=== PATIENT | male | born 1935 | race Caucasian/White ===

== ENCOUNTER 2024-02-22 10:30 | Outpatient (RCR) | payer MEDICARE, OTHER, SELFPAY ==
--- NOTE | 2024-02-16 15:39 | PT.OIE ---
Current Diagnoses Pain in unspecified knee (02/16/24) Spinal stenosis, lumbosacral region (02/16/24) Repeated falls (02/16/24) Weakness (02/16/24) Visit Care Team Role Provider Type Kamilla Butterfield MD Attending Provider Non-Staff Primary Care Provider Referring Provider Specialty: Rheumatology Address: [address] [place] [address], [place], [address] Fax: Email: Physical Therapy Initial Evaluation PT-OP-A Visit Information Start: 02/16/24 08:39 Freq: Status: Active Protocol: Document 02/16/24 09:48 MB (Rec: 02/16/24 10:07 MB [id number]) Out-Patient Physical Therapy Visit Information Visit Information Visit Type Initial Evaluation Visit Start Time 09:48 Visit Stop Time 10:18 Visit Number 1 Number of 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 He will have to see a neurosurgeon at [facility]. 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 He has been very active. He did a lot of hard garden work. Pt reports left leg pain and weakness and that his left leg gives out on him. He has had some falls. Pt has had 6 falls so far in 2023. Pt has not been using a cane or walking sticks. PMH includes arthritis, pacemaker, left hip replacement (pt has trouble recalling which hip), left sided DYKES that comes up the left side, hearing aides Pt denies numbness and tingling but he describes restless legs at night. He sleeps on his left side without pillow support between his legs. Prior Treatments and Tests 01/26/24: lumbar MRI: multi- level degenerative changes L2- 3, increased disc bulge and marked thickening of ligamentum flavum, central canal stenosis and sever on the left, some similar findings L3-4 Treatment Goals Patient/Caregiver Goals Decreased pain and get more mobile PT-OP-C Subjective Start: 02/16/24 08:39 Freq: Status: Active Protocol: Document 02/16/24 09:48 MB (Rec: 02/16/24 15:37 MB [id number]) OP-PT Subjective Patient Comments Patient Comments See history of current condition Patient Questionnaires Lower Extremity Functional Scale LEFS Score 36/80 PT-OP-G Mobility & Gait Start: 02/16/24 08:39 Freq: Status: Active Protocol: Document 02/16/24 09:48 MB (Rec: 02/16/24 15:37 MB [id number]) OP Gait Assessment Comments Gait Comments Gait without AD is slow and pt presents with decreased arm swing, more on the right, and step-to gait pattern with slight left leg lag PT-OP-J Posture/Palpation/Skin Start: 02/16/24 08:39 Freq: Status: Active Protocol: Document 02/16/24 09:48 MB (Rec: 02/16/24 15:37 MB [id number]) Posture Evaluation Comments Posture Comments Standing posture: pt with spinal changes and spinal protrusion/reversal of curvature posteriorly in various portions of thoracic spine, severe forward head with left tragus 2.5 in front of left AC joint, right iliac crest is higher than the left , B shoulders forward and rounded and left his higher than right. Standing balance is too poor to check spinal movement as far as flexion, extension and SB in standing. He has spinal tension and torsional curvature of his spine. Pt cannot follow commands to allow PT to passively raise either leg for SLR in supine. PT-OP-M Strength Start: 02/16/24 08:39 Freq: Status: Active Protocol: Document 02/16/24 09:48 MB (Rec: 02/16/24 15:37 MB [id number]) Hip Strength Hip Manual Muscle Testing Left Comments Pt moans/groans and c/o left hip and leg pain with active flexion in hook lying and so MMT and full ROM deferred d/t low tolerance Right Flexion (L2) 4 Good Extension (S1) 4 Good Abduction 4 Good Comments MMT in hook lying Knee Strength Knee Manual Muscle Testing Left Comments Attempted knee MMT twice and pt moans/groans in pain with lifting left hip in hook lying and he does not tolerate MMT Right Flexion (S2) 5 Normal Extension (L3) 5 Normal Ankle/Foot Strength Ankle and Foot Manual Muscle Testing Left Dorsiflexion (L4) 5 Normal Comments Tested in hook lying Right Dorsiflexion (L4) 5 Normal Comments Tested in hook lying Toe Strength Toe Manual Muscle Testing Left Great Toe Extension 5 Normal Comments Tested in hook lying Right Great Toe Extension 5 Normal Comments Tested in hook lying PT-OP-Q Treatments Start: 02/16/24 08:39 Freq: Status: Active Protocol: Document 02/16/24 09:48 MB (Rec: 02/16/24 15:37 MB [id number]) Gait Training Gait Activity Cane and hiking sticks Comments AD training d/t imbalance and reports of falls and pt has trouble moving hiking sticks each step and tends to move with same leg, one hiking stick appears to long functionally for step-length and SPC seems to be the best option. Pt tends to take too long of steps and so ongoing training to move AD with opposite foot and to take standard step length. Will need more practice. Self-Care/Home Management Treatment Education Other Education Benefits of AD to help protect spine, unweight and support left leg to help pain and to decrease fall risk. Pt requires a lot of encouragement and education about this as he states he has been trying to avoid AD use. Ed pt to make a list of his priorities/top goals at 89 y/o and he states he wants to go to [place] again and encouraged pt that safe gait can help get him where he wants to go. Ed in risk of falls and injury , log rolling technique and proper sleeping position with pillow support between legs PT-OP-T Assessment and Plan Start: 02/16/24 08:39 Freq: Status: Active Protocol: Document 02/16/24 09:48 MB (Rec: 02/16/24 15:37 MB [id number]) Physical Therapy Assessment Rehab Potential Rehabilitation Potential Fair Evaluation Complexity Number of Personal Factors/Comorbidities 1-2 Number of Body Systems Impaired 1-2 Clinical Presentation at Evaluation Evolving Impairments Impairments Activity Tolerance,Balance, Functional Activities, Functional Mobility,Gait,Pain, Posture,ROM,Soft Tissue Mobility,Strength,Transfers Other Concerns Fall Risk Yes Goals 3 Impairment Lack of HEP Senior Living Goal (LTG) Pt will perform progressive HEP with I including pelvic realignment, flexibility, breathing, core and LE strengthening and balance exercises to improve pain, strength and balance. LTG Duration 8 weeks 2 Impairment Evidence of imbalance Senior Living Goal (LTG) Pt will perform WNLs on Tinetti with LRAD to decrease fall risk. LTG Duration 8 weeks 1 Impairment Multiple falls in 2023 Senior Living Goal (LTG) Pt will deny falls for at least 6 weeks to reduce risk of injury. LTG Duration 8 weeks Assessment Summary Assessment Pt is an 89 y/o male presenting with significant spinal changes on postural examination. His gait without AD is poor and he has decreased arm swing and left leg lag with gait. He has had 6 falls so far in 2023 and does not have an AD and has been hesitant to use one. Extensive education on the benefits of better gait pattern to reduce left leg pain and to improve balance, gait stamina and to decrease fall risk. Pt presents with LLE pain with AROM in hook lying and he cannot tolerate full ROM and MMT in hook lying LLE as a result. He is functional weak with gait in LLE. Pt will benefit from PT to improve gait, balance, strength and flexibility. Barriers include insight and willingness to use AD, anatomical changes per functional assessment and MRI. Physical Therapy Plan Frequency and Duration Frequency of Treatment 2x/Week Duration of treatment (weeks) 8 Plan of Care Start Date 02/16/24 Plan of Care End Date 04/17/24 Therapeutic Interventions Therapeutic Interventions Balance Training,Canalithic Repositioning,Gait Training, Home Exercise Program,Joint Mobilizations,Manual Therapy, Neuromuscular Re-education, Patient/Caregiver Education, Self-Care/Home Management,Soft Tissue Mobilization,Taping, Therapeutic Activities, Therapeutic Exercises Modalities Cold Pack/Ice Massage,Electric Stimulation,Hot Packs, Ultrasound Next Visit Focus/Plan Next Note Type Treatment Note Next Visit Plan Review LRAD, initiate pelvic realignment exercises if pt can tolerate
--- NOTE | 2024-02-16 15:39 | PT.OPPOC ---
Physical, Occupational & Speech Therapy At [facility] Current Diagnoses Pain in unspecified knee (02/16/24) Spinal stenosis, lumbosacral region (02/16/24) Repeated falls (02/16/24) Weakness (02/16/24) Visit Care Team Role Provider Type Kamilla Butterfield MD Attending Provider Non-Staff Primary Care Provider Referring Provider Specialty: Rheumatology Address: [address] [place] [address], [place], [place], [facility] Fax: Email: Plan Of Care PT-OP-T Assessment and Plan Start: 02/16/24 08:39 Freq: Status: Active Protocol: Document 02/16/24 09:48 MB (Rec: 02/16/24 15:37 MB [id number]) Physical Therapy Assessment Rehab Potential Rehabilitation Potential Fair Evaluation Complexity Number of Personal Factors/Comorbidities 1-2 Number of Body Systems Impaired 1-2 Clinical Presentation at Evaluation Evolving Impairments Impairments Activity Tolerance,Balance, Functional Activities, Functional Mobility,Gait,Pain, Posture,ROM,Soft Tissue Mobility,Strength,Transfers Other Concerns Fall Risk Yes Goals 3 Impairment Lack of HEP Visitor Services Representative Goal (LTG) Pt will perform progressive HEP with I including pelvic realignment, flexibility, breathing, core and LE strengthening and balance exercises to improve pain, strength and balance. LTG Duration 8 weeks 2 Impairment Evidence of imbalance Visitor Services Representative Goal (LTG) Pt will perform WNLs on Tinetti with LRAD to decrease fall risk. LTG Duration 8 weeks 1 Impairment Multiple falls in 2023 Visitor Services Representative Goal (LTG) Pt will deny falls for at least 6 weeks to reduce risk of injury. LTG Duration 8 weeks Assessment Summary Assessment Pt is an 89 y/o male presenting with significant spinal changes on postural examination. His gait without AD is poor and he has decreased arm swing and left leg lag with gait. He has had 6 falls so far in 2023 and does not have an AD and has been hesitant to use one. Extensive education on the benefits of better gait pattern to reduce left leg pain and to improve balance, gait stamina and to decrease fall risk. Pt presents with LLE pain with AROM in hook lying and he cannot tolerate full ROM and MMT in hook lying LLE as a result. He is functional weak with gait in LLE. Pt will benefit from PT to improve gait, balance, strength and flexibility. Barriers include insight and willingness to use AD, anatomical changes per functional assessment and MRI. Physical Therapy Plan Frequency and Duration Frequency of Treatment 2x/Week Duration of treatment (weeks) 8 Plan of Care Start Date 02/16/24 Plan of Care End Date 04/17/24 Therapeutic Interventions Therapeutic Interventions Balance Training,Canalithic Repositioning,Gait Training, Home Exercise Program,Joint Mobilizations,Manual Therapy, Neuromuscular Re-education, Patient/Caregiver Education, Self-Care/Home Management,Soft Tissue Mobilization,Taping, Therapeutic Activities, Therapeutic Exercises Modalities Cold Pack/Ice Massage,Electric Stimulation,Hot Packs, Ultrasound Next Visit Focus/Plan Next Note Type Treatment Note Next Visit Plan Review LRAD, initiate pelvic realignment exercises if pt can tolerate Plan of Care Dates Plan of Care Start Date 02/16/24 Plan of Care End Date 04/17/24 Electronically Signed by: Lourdes Goldman, PT 02/16/24 8915 If you are in agreement with this Plan of Care, please return a signed and dated copy. I have reviewed this Plan of Care and certify that the skilled therapy services above are required to meet the patient?s needs. Physician Signature Date Printed Name and Credentials Clinical Instructor Signature Printed Name and Credentials
--- NOTE | 2024-02-22 11:15 | PT.OTN ---
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 He will have to see a neurosurgeon at [facility]. 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 He has been very active. He did a lot of hard garden work. Pt reports left leg pain and weakness and that his left leg gives out on him. He has had some falls. Pt has had 6 falls so far in 2023. Pt has not been using a cane or walking sticks. PMH includes arthritis, pacemaker, left hip replacement (pt has trouble recalling which hip), left sided DYKES that comes up the left side, hearing aides Pt denies numbness and tingling but he describes restless legs at night. He sleeps on his left side without pillow support between his legs. Prior Treatments and Tests 01/26/24: lumbar MRI: multi- level degenerative changes L2- 3, increased disc bulge and marked thickening of ligamentum flavum, central canal stenosis and sever on the left, some similar findings L3-4 Treatment Goals Patient/Caregiver Goals Decreased pain and get more mobile PT-OP-C Subjective Start: 02/16/24 08:39 Freq: Status: Active Protocol: Document 02/22/24 10:35 MB (Rec: 02/22/24 11:15 MB [id number]) OP-PT Subjective Patient Comments Patient Comments Pt arrives with walking sticks . He had two falls in the past week. His left leg gave way when getting into bed and going up the steps. PT-OP-G Mobility & Gait Start: 02/16/24 08:39 Freq: Status: Active Protocol: Document 02/16/24 09:48 MB (Rec: 02/16/24 15:37 MB [id number]) OP Gait Assessment Comments Gait Comments Gait without AD is slow and pt presents with decreased arm swing, more on the right, and step-to gait pattern with slight left leg lag PT-OP-J Posture/Palpation/Skin Start: 02/16/24 08:39 Freq: Status: Active Protocol: Document 02/16/24 09:48 MB (Rec: 02/16/24 15:37 MB [id number]) Posture Evaluation Comments Posture Comments Standing posture: pt with spinal changes and spinal protrusion/reversal of curvature posteriorly in various portions of thoracic spine, severe forward head with left tragus 2.5 in front of left AC joint, right iliac crest is higher than the left , B shoulders forward and rounded and left his higher than right. Standing balance is too poor to check spinal movement as far as flexion, extension and SB in standing. He has spinal tension and torsional curvature of his spine. Pt cannot follow commands to allow PT to passively raise either leg for SLR in supine. PT-OP-M Strength Start: 02/16/24 08:39 Freq: Status: Active Protocol: Document 02/16/24 09:48 MB (Rec: 02/16/24 15:37 MB [id number]) Hip Strength Hip Manual Muscle Testing Left Comments Pt moans/groans and c/o left hip and leg pain with active flexion in hook lying and so MMT and full ROM deferred d/t low tolerance Right Flexion (L2) 4 Good Extension (S1) 4 Good Abduction 4 Good Comments MMT in hook lying Knee Strength Knee Manual Muscle Testing Left Comments Attempted knee MMT twice and pt moans/groans in pain with lifting left hip in hook lying and he does not tolerate MMT Right Flexion (S2) 5 Normal Extension (L3) 5 Normal Ankle/Foot Strength Ankle and Foot Manual Muscle Testing Left Dorsiflexion (L4) 5 Normal Comments Tested in hook lying Right Dorsiflexion (L4) 5 Normal Comments Tested in hook lying Toe Strength Toe Manual Muscle Testing Left Great Toe Extension 5 Normal Comments Tested in hook lying Right Great Toe Extension 5 Normal Comments Tested in hook lying PT-OP-Q Treatments Start: 02/16/24 08:39 Freq: Status: Active Protocol: Document 02/22/24 10:35 MB (Rec: 02/22/24 11:15 MB [id number]) Therapeutic Exercises Supine Exercises Pelvic realignment exercises Supine Exercise Name Dysmetria in LLE with second exercise Equipment Used Blue ball Reps/Minutes 5 rep, 3 sec hold all exercises in order Comments Feet together ball squeeze iso , knee opp ankle iso, thigh press down iso Gait Training Gait Activity Stair training Comments With left rail and cane ascend and descend and then with cane only, advance always with left leg ascend and descend with cane in right hand and pt requires cues and CGA Cane and hiking sticks Comments Pt simply cannot get the pattern of advancing stick with opposite foot with either one or two hiking sticks ( tried both hands). He does better with the SPC in right hand and cued for more normal step length Self-Care/Home Management Treatment Education Other Education Extensive and repeated education about pt's current level, needing to stop falls, benefits of AD to help with this and ongoing AD training and SPC currently looks the best for pt PT-OP-T Assessment and Plan Start: 02/16/24 08:39 Freq: Status: Active Protocol: Document 02/22/24 10:35 MB (Rec: 02/22/24 11:15 MB [id number]) Physical Therapy Assessment Rehab Potential Rehabilitation Potential Fair Evaluation Complexity Number of Personal Factors/Comorbidities 1-2 Number of Body Systems Impaired 1-2 Clinical Presentation at Evaluation Evolving Impairments Impairments Activity Tolerance,Balance, Functional Activities, Functional Mobility,Gait,Pain, Posture,ROM,Soft Tissue Mobility,Strength,Transfers Other Concerns Fall Risk Yes Goals 3 Impairment Lack of HEP Accelerator Operator Goal (LTG) Pt will perform progressive HEP with I including pelvic realignment, flexibility, breathing, core and LE strengthening and balance exercises to improve pain, strength and balance. LTG Duration 8 weeks 2 Impairment Evidence of imbalance Accelerator Operator Goal (LTG) Pt will perform WNLs on Tinetti with LRAD to decrease fall risk. LTG Duration 8 weeks 1 Impairment Multiple falls in 2024 Accelerator Operator Goal (LTG) Pt will deny falls for at least 6 weeks to reduce risk of injury. LTG Duration 8 weeks Assessment Summary Assessment Sometimes PT is unsure how realistic pt is about his situation and about his goals. He is reluctant to accept needing a cane despite ongoing falls. He states often that I want to get back to running. PT provides ongoing education and encouragement and con't to encourage pt that he needs to set goal priorities and stop falling. PT ed pt to keep the cane with him at all times. Overall, decreased insight/acceptance/ awareness may be barriers to compliance. Pt's gait is so much better with cane than it is without: he no longer drags the left leg. He does con't to take very long steps with left foot with the cane and so he may benefit from ongoing ed/training in taking normal step length steps as trained extensively today. Physical Therapy Plan Frequency and Duration Frequency of Treatment 2x/Week Duration of treatment (weeks) 8 Plan of Care Start Date 02/16/24 Plan of Care End Date 04/17/24 Therapeutic Interventions Therapeutic Interventions Balance Training,Canalithic Repositioning,Gait Training, Home Exercise Program,Joint Mobilizations,Manual Therapy, Neuromuscular Re-education, Patient/Caregiver Education, Self-Care/Home Management,Soft Tissue Mobilization,Taping, Therapeutic Activities, Therapeutic Exercises Modalities Cold Pack/Ice Massage,Electric Stimulation,Hot Packs, Ultrasound Next Visit Focus/Plan Next Note Type Treatment Note Next Visit Plan Review gait with SPC in right hand, review pelvic realignment exercises, progress LE flexibility, strengthening, and balance Plan is: AD use and compliance , pelvic alignment, flexibility, strengthening and balance
--- NOTE | 2024-03-15 15:54 | PT.OPDS ---
Current Diagnoses Pain in unspecified knee (02/22/24) Spinal stenosis, lumbosacral region (02/22/24) Repeated falls (02/22/24) Weakness (02/22/24) Visit Care Team Role Provider Type Kamilla Butterfield MD Attending Provider Non-Staff Primary Care Provider Referring Provider Specialty: Rheumatology Address: [address] [place] [address], [place], [address] Fax: Email: Visit Number Visit Number 2 Discharge Summary PT-OP-B Current Condition Start: 02/16/24 08:39 Freq: Status: Active Protocol: Document 02/16/24 09:48 MB (Rec: 02/16/24 10:07 MB [id number]) Current Condition History of Current Condition Onset Date LBP a long time and last summer, more falls and left leg problems Current Complaints Falls, left leg giving way, pain History of Current Condition Pt states that 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 He will have to see a neurosurgeon at [facility]. 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 He has been very active. He did a lot of hard garden work. Pt reports left leg pain and weakness and that his left leg gives out on him. He has had some falls. Pt has had 6 falls so far in 2023. Pt has not been using a cane or walking sticks. PMH includes arthritis, pacemaker, left hip replacement (pt has trouble recalling which hip), left sided DYKES that comes up the left side, hearing aides Pt denies numbness and tingling but he describes restless legs at night. He sleeps on his left side without pillow support between his legs. Prior Treatments and Tests 01/26/24: lumbar MRI: multi- level degenerative changes L2- 3, increased disc bulge and marked thickening of ligamentum flavum, central canal stenosis and sever on the left, some similar findings L3-4 Treatment Goals Patient/Caregiver Goals Decreased pain and get more mobile PT-OP-C Subjective Start: 02/16/24 08:39 Freq: Status: Active Protocol: Document 02/22/24 10:35 MB (Rec: 02/22/24 11:15 MB [id number]) OP-PT Subjective Patient Comments Patient Comments Pt arrives with walking sticks . He had two falls in the past week. His left leg gave way when getting into bed and going up the steps. PT-OP-G Mobility & Gait Start: 02/16/24 08:39 Freq: Status: Active Protocol: Document 02/16/24 09:48 MB (Rec: 02/16/24 15:37 MB [id number]) OP Gait Assessment Comments Gait Comments Gait without AD is slow and pt presents with decreased arm swing, more on the right, and step-to gait pattern with slight left leg lag PT-OP-J Posture/Palpation/Skin Start: 02/16/24 08:39 Freq: Status: Active Protocol: Document 02/16/24 09:48 MB (Rec: 02/16/24 15:37 MB [id number]) Posture Evaluation Comments Posture Comments Standing posture: pt with spinal changes and spinal protrusion/reversal of curvature posteriorly in various portions of thoracic spine, severe forward head with left tragus 2.5 in front of left AC joint, right iliac crest is higher than the left , B shoulders forward and rounded and left his higher than right. Standing balance is too poor to check spinal movement as far as flexion, extension and SB in standing. He has spinal tension and torsional curvature of his spine. Pt cannot follow commands to allow PT to passively raise either leg for SLR in supine. PT-OP-M Strength Start: 02/16/24 08:39 Freq: Status: Active Protocol: Document 02/16/24 09:48 MB (Rec: 02/16/24 15:37 MB [id number]) Hip Strength Hip Manual Muscle Testing Left Comments Pt moans/groans and c/o left hip and leg pain with active flexion in hook lying and so MMT and full ROM deferred d/t low tolerance Right Flexion (L2) 4 Good Extension (S1) 4 Good Abduction 4 Good Comments MMT in hook lying Knee Strength Knee Manual Muscle Testing Left Comments Attempted knee MMT twice and pt moans/groans in pain with lifting left hip in hook lying and he does not tolerate MMT Right Flexion (S2) 5 Normal Extension (L3) 5 Normal Ankle/Foot Strength Ankle and Foot Manual Muscle Testing Left Dorsiflexion (L4) 5 Normal Comments Tested in hook lying Right Dorsiflexion (L4) 5 Normal Comments Tested in hook lying Toe Strength Toe Manual Muscle Testing Left Great Toe Extension 5 Normal Comments Tested in hook lying Right Great Toe Extension 5 Normal Comments Tested in hook lying PT-OP-T Assessment and Plan Start: 02/16/24 08:39 Freq: Status: Active Protocol: Document 03/15/24 15:52 MB (Rec: 03/15/24 15:54 MB [id number]) Physical Therapy Assessment Assessment Summary Assessment PT notices that all of pt's appointments are cancelled. PT calls pt and pt states that he had lumbar surgery. Will d/ c PT.
== END 2024-03-22 12:50 | disposition home or self-care (01) ==
LOC: PHYS 10:30
PROVIDERS: PCP Internal Medicine; Referring Provider Internal Medicine; Visit Provider Internal Medicine
DX: M25.569 Pain in unspecified knee (principal); M48.07 Spinal stenosis, lumbosacral region; R29.6 Repeated falls; R53.1 Weakness
CPT/HCPCS: 97110; 97116; 97161; 97535